=== PATIENT | female | born 1990 | race Caucasian/White ===

== ENCOUNTER 2016-11-27 00:23 | Inpatient (IN) | payer SELFPAY ==
--- NOTE | 2016-11-27 00:56 | ED.PDOC ---
History of Present Illness - General Chief Complaint: Abdominal Pain Stated Complaint: abd pain Time Seen by Provider: 11/27/16 00:34 Information Source: patient, RN notes reviewed Exam Limitations: no limitations - History of Present Illness Initial Comments: Ms. Tayler Long 26 y/o female stated she started experiencing dull right lower quadrant pain 2 hours ago which gradually got worse becoming constant. Abdominal Pain Onset Location: RLQ Pain Radiation: LLQ Quality: dull, steady Timing/Duration: 1-3 hours Associated Symptoms: denies symptoms Review of Systems - Review of Systems Constitutional: States: no symptoms reported EENTM: States: no symptoms reported Respiratory: States: no symptoms reported Cardiology: States: no symptoms reported Gastrointestinal/Abdominal: States: see HPI Genitourinary: States: no symptoms reported Musculoskeletal: States: no symptoms reported Skin: States: no symptoms reported Neurological: States: no symptoms reported Endocrine: States: no symptoms reported Hematologic/Lymphatic: States: no symptoms reported Past Medical History (General) - Patient Medical History Surgical History: no surgical history - Social History Hx Tobacco Use: No Hx Alcohol Use: No Hx Substance Use: No - Activities of Daily Living Patient Lives Alone: No - spouse - Female History Patient is a Female of Child Bearing Age (10 -59 yrs old): Yes Hx Last Menstrual Period: 03/02/16 Patient : No Family Medical History - Family History Mother Family History: Unknown Hx Family Diabetes: Yes - dad Physical Exam - Physical Exam General Appearance: Alert, No apparent distress Eyes, Ears, Nose, Throat Exam: PERRL/EOMI, normal ENT inspection, TMs normal, pharynx normal Neck: non-tender, full range of motion, supple, normal inspection Respiratory: chest non-tender, lungs clear, normal breath sounds, no respiratory distress Cardiovascular/Chest: normal peripheral pulses, regular rate, rhythm, no edema, no murmur Peripheral Pulses: No deficit Gastrointestinal/Abdominal: normal bowel sounds, soft, guarding, rebound - RLQ, tenderness Back Exam: normal inspection, no CVA tenderness, no vertebral tenderness Extremity: normal range of motion, non-tender Neurologic: no motor/sensory deficits, alert, normal mood/affect, oriented x 3 Skin Exam: normal color, warm/dry Lymphatic: no adenopathy Progress - Results/Orders Results/Orders: 11/27/16 01:11 Hold Metformin x 48Hrs [id number] Laboratory Results WBC 19.0 K/mm3 (4.8-10.8) H 11/27/16 00:45 RBC 5.45 M/mm3 (4.20-5.40) H 11/27/16 00:45 Hgb 15.6 gm/dL (12.0-16.0) 11/27/16 00:45 Hct 45.5 % (36.0-47.0) 11/27/16 00:45 MCV 83.4 fl (81.0-99.0) 11/27/16 00:45 MCH 28.6 pg (27.0-31.0) 11/27/16 00:45 MCHC 34.2 g/dL (33.0-37.0) 11/27/16 00:45 RDW 13.2 % (11.5-14.5) 11/27/16 00:45 Plt Count 399 K/mm3 (130-400) 11/27/16 00:45 MPV 7.2 fl (7.40-10.4) L 11/27/16 00:45 Absolute Neuts (auto) 13.10 K/uL (1.8-6.8) H 11/27/16 00:45 Absolute Lymphs (auto) 4.80 K/uL (1.0-3.4) H 11/27/16 00:45 Absolute Monos (auto) 0.80 K/uL (0.2-0.8) 11/27/16 00:45 Absolute Eos (auto) 0.20 K/uL (0.0-0.4) 11/27/16 00:45 Absolute Basos (auto) 0.20 K/uL (0.0-0.1) H 11/27/16 00:45 Neutrophils % 68.8 % (42.0-78.0) 11/27/16 00:45 Lymphocytes % 25.2 % (20.0-50.0) 11/27/16 00:45 Monocytes % 4.3 % (2.0-9.0) 11/27/16 00:45 Eosinophils % 0.8 % (1.0-5.0) L 11/27/16 00:45 Basophils % 0.9 % (0.0-2.0) 11/27/16 00:45 Sodium 137 mmol/L (135-145) 11/27/16 00:45 Potassium 3.6 mmol/L (3.6-5.0) 11/27/16 00:45 Chloride 102 mmol/L (101-111) 11/27/16 00:45 Carbon Dioxide 25 mmol/L (21-31) 11/27/16 00:45 Anion Gap 13.6 (12-18) 11/27/16 00:45 BUN 16 mg/dL (7-18) 11/27/16 00:45 Creatinine 0.87 mg/dL (0.6-1.3) 11/27/16 00:45 BUN/Creatinine Ratio 18.4 (10-20) 11/27/16 00:45 Random Glucose 102 mg/dL (70-105) 11/27/16 00:45 Serum Osmolality 275.2 mOsm/L (275-295) 11/27/16 00:45 Calcium 9.6 mg/dL (8.4-10.2) 11/27/16 00:45 Total Bilirubin 0.4 mg/dL (0.2-1.0) 11/27/16 00:45 AST 25 IU/L (10-42) 11/27/16 00:45 ALT 35 IU/L (10-60) 11/27/16 00:45 Alkaline Phosphatase 63 IU/L (42-121) 11/27/16 00:45 Serum Total Protein 8.7 gm/dL (6.4-8.2) H 11/27/16 00:45 Albumin 4.5 g/dl (3.2-5.5) 11/27/16 00:45 Globulin 4.2 gm/dL (2.3-3.5) H 11/27/16 00:45 Albumin/Globulin Ratio 1.1 (1.1-1.9) 11/27/16 00:45 Lipase 28 U/L (22-51) 11/27/16 00:45 Serum HCG, Qual Negative 11/27/16 00:45 Urine Color Yellow (Yellow) 11/27/16 01:45 Urine Appearance Clear (Clear) 11/27/16 01:45 Urine pH 6.0 (4.5-7.8) 11/27/16 01:45 Ur Specific [place] 1.010 (1.005-1.030) 11/27/16 01:45 Urine Protein Negative mg/dL 11/27/16 01:45 Urine Glucose (UA) Negative mg/dL (Negative) 11/27/16 01:45 Urine Ketones Negative mg/dL (NEGATIVE) 11/27/16 01:45 Urine Blood Negative (Negative) 11/27/16 01:45 Urine Nitrite Negative 11/27/16 01:45 Urine Bilirubin Negative (NEGATIVE) 11/27/16 01:45 Urine Urobilinogen 0.2 mg/dL (0.2-1.0) 11/27/16 01:45 Ur Leukocyte Esterase Negative (Negative) 11/27/16 01:45 Urine RBC 0 /hpf 11/27/16 01:45 Urine WBC 0 /hpf 11/27/16 01:45 Ur Epithelial Cells 0-1 /hpf 11/27/16 01:45 Urine Bacteria Rare 11/27/16 01:45 Vital Signs - 24 hr 11/27/16 00:50 Temperature 99.9 F H Pulse Rate [ 103 H monitor] Respiratory 20 Rate Blood Pressure 146/83 [Left Arm] O2 Sat by Pulse 97 Oximetry Departure - Departure Clinical Impression: Acute appendicitis Qualifiers: Acute appendicitis type: unspecified acute appendicitis type Qualifier Code: ( K35.80) Unspecified acute appendicitis Time of Disposition: 02:04 - D/W Dr. Palmer-Surgeon for admit Disposition: Admit Patient Departure Forms: Patient Portal Self Enrollment
[2016-11-27] MEDS ORDERED: LACTATED RINGERS 1,000 ML IVS ONE (00:57)
[2016-11-27] MEDS ORDERED: PROCHLORPERAZINE INJ 10 MG/2 ML VIAL IV ONE (00:58)
[2016-11-27] MEDS ORDERED: MORPHINE SULFATE INJ 10 MG/ML VIAL IV ONE (00:58)
--- NOTE | 2016-11-27 01:43 | CT ---
EXAM DESCRIPTION: Abdomen/Pelvis w/Contrast 11/27/2016 1:40 AM CDT CLINICAL HISTORY: 26 years, Female, RLQ ABD PAIN COMPARISON: [None] TECHNIQUE: Following the administration of intravenous and enteric contrast, volumetric CT acquisition was performed through the abdomen and pelvis. Images in the axial and coronal planes were presented for interpretation This exam was performed according to our departmental dose-optimization program, which includes automated exposure control, adjustment of the mA and/or kV according to patient size and/or use of iterative reconstruction technique. FINDINGS: The visualized portions of the lung bases are clear. The cardiomediastinal structures are within normal limits. Within the upper abdomen, the liver and spleen are normal in size and morphology. There is diffuse fatty infiltration of the liver. The gallbladder is normal in morphology. The intra/extrahepatic biliary tree is normal in appearance. The pancreas and adrenal glands are normal. The kidneys are normal in size bilaterally. The ureters are normal in course and caliber. The stomach and small intestines are within normal limits without evidence of bowel dilation or wall thickening. The appendix is dilated and partially fluid-filled measuring up to 10 mm in diameter on axial image 62 lateral to the right psoas muscle. There are moderate surrounding inflammatory changes. There is no evidence of perforation or abscess formation. The colon is stool filled and unremarkable. Within the pelvis, the bladder and rectum are normal. The uterus and ovaries are age-appropriate. There are no pathologically enlarged inguinal, retroperitoneal, portacaval, or mesenteric lymph nodes. The soft tissue structures of the abdominal wall are normal. The visualized osseous structures are within normal limits for the patient's age. The abdominal aorta and its primary branches are normal in course and caliber. Limited evaluation of the venous structures demonstrates no gross abnormalities. IMPRESSION: Acute uncomplicated appendicitis. Note: Results discussed with Dr. Jorge of the Emergency Department at 01:42 on November 27, 2016. Electronically signed by: Alanis Harmon MD 11/27/2016 1:42 AM CDT
[2016-11-27] MEDS ORDERED: HYDROmorphone HCL INJ 2 MG/ML VIAL IV ONE (01:59)
--- NOTE | 2016-11-27 03:03 | HP ---
CHIEF COMPLAINT: Abdominal pain. HISTORY OF PRESENT ILLNESS: The patient is a 26 year-old female who was in her normal state of health when she developed abdominal pain yesterday which moved to the right lower quadrant and has become persistent, dull and quite painful. She denies nausea or vomiting or fever. She states she has had previous episodes of like illness but not to this extent. She denies change in bowel habits, blood per rectum, melanotic stools. She denies weight loss or gain. She denies urinary tract symptoms. PAST MEDICAL HISTORY: 1. Oophorectomy. 2. Large benign ovarian cyst. CURRENT MEDICATIONS: She states no medications on a routine basis. ALLERGIES: NO KNOWN DRUG ALLERGIES. FAMILY HISTORY: Positive for diabetes but no malignancies. SOCIAL HISTORY: The patient is single but has lived with the same person for 4 years. She also lives with her mother. She smokes cigarettes a pack a day, but less than 10-pack years. She does not use alcohol routinely and denies substance abuse. LAST MENSTRUAL PERIOD: Unknown. REVIEW OF SYSTEMS: No history of chest pain, shortness of breath, otherwise the same as in the history of present illness. PHYSICAL EXAMINATION: VITAL SIGNS: She is currently afebrile and normotensive. GENERAL: The patient is awake, alert and cooperative and in mild distress. HEENT: Sclera nonicteric. Mucous membranes are moist. BACK: Without CVA tenderness. CHEST: Equal breath sounds bilaterally anteriorly. CARDIOVASCULAR: Regular rate and rhythm, somewhat tachycardic. ABDOMEN: Soft, bowel sounds are active. There is tenderness diffusely but worse in the right lower quadrant. EXTREMITIES: Without cyanosis, clubbing, or edema. PELVIC/RECTAL: Examinations deferred. LABORATORY: This morning at 0045 revealed a white count of 19,000, hemoglobin 15.6. She had 399,000 platelets and 68% neutrophils. Chemistries revealed a potassium of 3.6, creatinine 0.87. Liver functions within normal limits. Amylase and lipase within normal limits. hCG is negative. CT scan revealed inflammatory process around a dilated appendix with no free fluid, free air or discrete abscess cavity. ASSESSMENT: 1. Right lower quadrant abdominal pain. 2. Leukocytosis. 3. Abnormal CT scan consistent with appendicitis. PLAN: The risks, benefits, and alternatives including IV treatment for uncomplicated appendicitis were discussed with the patient and she agrees to the plan of laparotomy appendectomy and indicated procedures. This morning she has received IV Mefoxin and Flagyl and this will be continued in the perioperative period. #[id number] [facility]
[2016-11-27] MEDS ORDERED: SODIUM CHLORIDE 0.9% 1000ML 1,000 ML IVS PRN ×2 (03:22→08:09)
[2016-11-27] MEDS ORDERED: cefOXitin SODIUM 2 GM in SODIUM CHL 0.9% 50ML MIN-BAG+ 50 ML IVPB ONE (03:23)
[2016-11-27] MEDS ORDERED: metroNIDAZOLE IV PREMIX 500MG 500 MG in PREMIX BAG 1 BAG IVPB ONE (03:24)
[2016-11-27] MEDS ORDERED: SODIUM CHL 0.9% 50ML MIN-BAG+ 50 ML IVPB ONE ×3 (03:35→19:14)
[2016-11-27] MEDS ORDERED: cefOXitin SODIUM 2 GM INJ IVPB ONE ×4 (03:35→19:14)
[2016-11-27] MEDS ORDERED: metroNIDAZOLE IV PREMIX 500MG 100 ML IVPB ONE ×4 (03:46→19:14)
[2016-11-27] MEDS ORDERED: BUPIVACAINE 0.25% W/EPI 50 ML VIAL INJ ONE (07:48)
[2016-11-27] MEDS ORDERED: fentaNYL CITRATE INJ 50 MCG/ML AMP IV ONE (08:11)
[2016-11-27] MEDS ORDERED: IV SET AND CAP CHANGE INJ INJ SCH (08:30)
[2016-11-27] MEDS ORDERED: MIDAZOLAM INJ 5 MG/5 ML VIAL ONE (08:50)
[2016-11-27] MEDS ORDERED: ONDANSETRON INJ 4 MG/2 ML VIAL IV PRN (10:08)
[2016-11-27] MEDS: LACTATED RINGERS 1,000 ML IVS PRN ×3 (10:18→18:15)
[2016-11-27] MEDS: MORPHINE SULFATE INJ 10 MG/ML VIAL ONE ×3 (10:24→10:34)
[2016-11-27] MEDS ORDERED: SODIUM CHL 0.9% 100ML MINI-BAG 100 ML IVPB ONE (10:25)
[2016-11-27] MEDS: cefOXitin SODIUM 2 GM in SODIUM CHL 0.9% 50ML MIN-BAG+ 50 ML IVPB SCH ×2 (10:30→17:30)
[2016-11-27] MEDS ORDERED: METOCLOPRAMIDE HCL INJ 10 MG/2 ML VIAL ONE (11:00)
[2016-11-27] MEDS ORDERED: MAGNESIUM HYDROXIDE 30 ML UD ONE (11:17)
[2016-11-27] MEDS: metroNIDAZOLE IV PREMIX 500MG 500 MG in PREMIX BAG 1 BAG IVPB SCH ×2 (11:21→18:14)
--- NOTE | 2016-11-27 11:28 | OP ---
DATE OF PROCEDURE: 11/27/16 PREOPERATIVE DIAGNOSIS: 1. Right lower quadrant abdominal pain. 2. Leukocytosis of 19,000. 3. Abnormal CT scan consistent with appendicitis. POSTOPERATIVE DIAGNOSIS: 1. Right lower quadrant abdominal pain. 2. Leukocytosis of 19,000. 3. Abnormal CT scan consistent with appendicitis. 4. Acute appendicitis. 5. Large left ovarian cyst benign appearing. PROCEDURE: 1. Laparoscopy, appendectomy and drainage of ovarian cyst. SURGEON: Ari Palmer M.D. SCHOOL BUSINESS MANAGER: None. ANESTHESIA: Local infiltration of 0.25% Marcaine with epinephrine and general endotracheal anesthesia. INDICATION FOR SURGERY: The patient is a 26 year-old female with the acute onset of abdominal pain in the right lower quadrant yesterday. She was admitted and CT scan was consistent with acute appendicitis. She was noted to have a white count of 19,000. She was admitted, made NPO, started on IV antibiotics of Mefoxin and Flagyl, and given a small amount of analgesia. She was rehydrated intravenously and this morning after the risks, benefits, and alternatives to surgery were discussed and accepted, she was brought to the Surgical Suite. FINDINGS AT TIME OF PROCEDURE: The patient had a large, very benign-appearing left ovarian cyst completely filling the pelvis making the procedure essentially impossible prior to its drainage. The drainage was clear and was sent for cytology. The appendix was inflamed and somewhat retrocecal. There was no obvious abscess cavity, fluid collection or perforation identified. Also noted during the procedure was a small serosal tear in the sigmoid colon. It was irrigated and felt to be serosal only and it was not treated. DESCRIPTION OF PROCEDURE: After adequate general endotracheal anesthesia was obtained, the Williamson catheter was placed. The patient was prepped and draped in the usual sterile manner. A surgical time out was taken. The infraumbilical area was infiltrated with 0.25% Marcaine with epinephrine. A curvilinear incision was fashioned and carried down through the subcutaneous tissue to the midline fascia. Traction sutures were placed on either side of the midline. A small incision was made in the midline fascia. The peritoneum was opened bluntly. Mery trocar was introduced under direct vision into the abdominal cavity and fixed in place with a 20 mL balloon. CO2 was then insufflated until a pressure of 12 mmHg was reached and the abdomen was tympanitic in all 4 quadrants. When this was done, the laparoscope was introduced with the previously noted findings, basically a cyst that was bluish tone, very smooth but completely filled the pelvis. At this point, suprapubic port was placed well up approximately 2.5 inches above her Pfannenstiel incision. When it was placed, it was held in place with the balloon and then a blunt grasper was used to make a hole in the cyst, 20 mL approximately of the fluid was sent for cytology. The suction catheter was introduced into the cyst and it was completely deflated. The remainder of the fluid was removed. At this point, the appendix was identified in the right lower quadrant. The left lower quadrant port was placed under direction vision and then using some blunt dissection the appendix was elevated. The base of the appendix was identified. The mesoappendix at the base was divided using blunt dissection and the base of the appendix was divided using the Endo-JONATHON with a vascular load. The mesoappendix which was white, firm and indurated was transected with multiple firings of the Endo-JONATHON. The appendix was placed in an EndoCatch bag and removed from the left lower quadrant port site under direct vision. It was also noted this was all done with the patient in reverse Trendelenburg position and turned to the left side. When this was done, there was a small amount of oozing from this area and it was irrigated copiously with saline. There was no pulsatile bleeding. The pelvis was irrigated with saline. Good hemostasis was noted there. There was no significant bloody fluid collection identified. Due to the inflammatory process in the right lower quadrant and the oozing, a 15 [place] round J-P drain was placed in the area of the base of the appendix and brought out through the suprapubic port site. It was sutured in placed with a single #3-0 nylon ligature. When this was done, the left lower quadrant port was removed under direct vision and it was closed with the EndoClose device placing 2 simple sutures of 0 Vicryl. When these were tightened and tied, hemostasis was noted to be adequate. At this point, the CO2, the laparoscope and the infraumbilical port were removed. The infraumbilical port site fascia was approximated with a single [id number] suture of 0 Vicryl. Subcutaneous tissue was irrigated with saline. Skin edges were loosely approximated with a skin stapler. Sterile dressings were applied. The patient was awakened and taken to the Recovery Room in good and stable condition after the Williamson catheter was removed. Estimated blood loss was approximately 100 mL. A large amount of cyst fluid was removed and the patient was irrigated with approximately 800 mL. All sponge, needle and instrument counts were correct. #[id number] [facility]
[2016-11-27] MEDS: HYDROmorphone HCL INJ 2 MG/ML VIAL IV PRN ×4 (11:32→21:19)
[2016-11-27] MEDS ORDERED: NEOSTIGMINE METHYLSULFATE 1 MG/ML ML IV ONE (12:00)
[2016-11-27] MEDS ORDERED: ATROPINE SULFATE 0.4 MG/ML 1ML VIAL IV ONE (12:00)
[2016-11-27] MEDS ORDERED: PROPOFOL 200 MG/20 ML VIAL IV ONE (12:00)
[2016-11-27] MEDS: HYDROcodone 5MG/APAP 325MG 1 EA TAB PO PRN (15:58)
[2016-11-27] MEDS ORDERED: MAGNESIUM HYDROXIDE 30 ML UD PO ONE (18:00)
[2016-11-28] MEDS: cefOXitin SODIUM 2 GM in SODIUM CHL 0.9% 50ML MIN-BAG+ 50 ML IVPB SCH ×3 (01:33→18:10)
[2016-11-28] MEDS: HYDROmorphone HCL INJ 2 MG/ML VIAL IV PRN ×3 (01:40→20:11)
[2016-11-28] MEDS: metroNIDAZOLE IV PREMIX 500MG 500 MG in PREMIX BAG 1 BAG IVPB SCH ×3 (02:35→19:47)
[2016-11-28] MEDS: LACTATED RINGERS 1,000 ML IVS PRN ×2 (06:19→20:10)
[2016-11-28] MEDS: SODIUM CHLORIDE 0.9% (FLUSH) 10 ML SYG IV PRN ×4 (07:00→20:11)
[2016-11-28] MEDS ORDERED: cefOXitin SODIUM 2 GM INJ IVPB ONE ×2 (07:29→18:08)
[2016-11-28] MEDS ORDERED: metroNIDAZOLE IV PREMIX 500MG 100 ML IVPB ONE ×2 (07:29→19:40)
[2016-11-28] MEDS ORDERED: SODIUM CHL 0.9% 50ML MIN-BAG+ 50 ML IVPB ONE ×2 (07:29→18:07)
[2016-11-28] MEDS ORDERED: METOCLOPRAMIDE HCL INJ 10 MG/2 ML VIAL IV ONE (09:05)
[2016-11-28] MEDS: HYDROcodone 5MG/APAP 325MG 1 EA TAB PO PRN ×2 (13:25→17:45)
[2016-11-28] MEDS ORDERED: MAGNESIUM HYDROXIDE 30 ML UD PO ONE (14:00)
[2016-11-29] MEDS ORDERED: cefOXitin SODIUM 2 GM INJ IVPB ONE ×4 (00:43→10:11)
[2016-11-29] MEDS ORDERED: SODIUM CHL 0.9% 50ML MIN-BAG+ 50 ML IVPB ONE ×3 (00:43→10:11)
[2016-11-29] MEDS ORDERED: PROCHLORPERAZINE INJ 10 MG/2 ML VIAL IV ONE (01:01)
[2016-11-29] MEDS ORDERED: SODIUM CHLORIDE 0.9% 50ML 50 ML ONE (01:04)
[2016-11-29] MEDS ORDERED: metroNIDAZOLE IV PREMIX 500MG 100 ML IVPB ONE ×3 (01:35→11:13)
[2016-11-29] MEDS: cefOXitin SODIUM 2 GM in SODIUM CHL 0.9% 50ML MIN-BAG+ 50 ML IVPB SCH ×2 (01:36→10:05)
[2016-11-29] MEDS: metroNIDAZOLE IV PREMIX 500MG 500 MG in PREMIX BAG 1 BAG IVPB SCH ×2 (02:35→11:13)
[2016-11-29] MEDS: SODIUM CHLORIDE 0.9% (FLUSH) 10 ML SYG IV PRN (02:35)
[2016-11-29] MEDS: HYDROcodone 5MG/APAP 325MG 1 EA TAB PO PRN ×2 (05:43→11:17)
[2016-11-29 15:08] VITALS: BP 128/82; TEMP 98.3; O2SAT 99
--- NOTE | 2016-11-29 17:58 | DS ---
FINAL DIAGNOSIS: 1. Acute appendicitis pending pathology report. 2. Benign-appearing left ovarian cyst. SURGICAL PROCEDURE: 1. Laparoscopy. 2. Appendectomy. 3. Drainage of ovarian cyst with cytology. HISTORY OF PRESENT ILLNESS: The patient is a 26 year-old female who was in her normal state of health when she developed abdominal pain yesterday which moved to the right lower quadrant and has become persistent, dull and quite painful. She denies nausea or vomiting or fever. She states she has had previous episodes of like illness but not to this extent. She denies change in bowel habits, blood per rectum, melanotic stools. She denies weight loss or gain. She denies urinary tract symptoms. LABORATORY: On the date of discharge, the patient's white blood cell count was 10.9 with 66% neutrophils, hemoglobin 13.4, platelet count 324,000. Pathology is pending. Her postoperative potassium was 4.2, creatinine 0.91. HOSPITAL COURSE: The patient was admitted from the Emergency Room early in the morning hours of 11/27/16. She was given IV Mefoxin and Flagyl. sonogram technician on the , she underwent a laparoscopic appendectomy and drainage of the left ovarian cyst. She tolerated the procedure well. On the first postoperative morning, she was afebrile, tolerating clear liquids. She had nausea which has resolved so she was left on a clear liquid diet. She had no flatus or bowel movement. Her white count was down from 19,000 to 10,000. Hemoglobin was stable along with her electrolytes. She was continued on IV antibiotics. She was given oral pain medication ordered as taken when her diet was well tolerated. She was given a dose of Milk of Magnesia. On the second postoperative day, she had had hiccups overnight but these resolved. She had had a bowel movement and flatus. She was tolerating clear liquids well. She was advanced to a regular diet. In the early afternoon after tolerating a regular diet, she was discharged home. Condition on discharge was improved. Prognosis was good pending pathology report and the cytology report. PLAN: She was discharged on a regular diet. She was told to do no heavy lifting or exercise. No tub baths but may shower. She is not to put anything on her incisions other than band-aids. She was discharged with prescriptions for Mills 5 mg 1 or 2 every 4 hours p.r.n. pain, Ceftin 250 every 12 hours and Flagyl 250 every 8 hours. She is discharged with instructions to followup in my office in 8 days. She is to call if she develops nausea or vomiting, fever or chills, increasing abdominal pain or has other questions or problems. #[id number] [facility]
== END 2016-11-29 15:20 | disposition home or self-care (01) | DRG 343 ==
LOC: ER 00:23 → OBSVTOIN 03:02 → MS 03:02
PROVIDERS: ADMIT Surgery; ATTEND Surgery
PROC: 0DTJ4ZZ Resection of Appendix, Percutaneous Endoscopic Approach (ICD-10-PCS; 2016-11-27)
PROC: 0U914ZZ Drainage of Left Ovary, Percutaneous Endoscopic Approach (ICD-10-PCS; 2016-11-27)
PROC: BW21YZZ Computerized Tomography (CT Scan) of Abdomen and Pelvis using Other Contrast (ICD-10-PCS; principal; 2016-11-27 08:29)
DX: K35.80 Unspecified acute appendicitis (principal); N83.202 Unspecified ovarian cyst, left side; F17.210 Nicotine dependence, cigarettes, uncomplicated; Z90.721 Acquired absence of ovaries, unilateral

== ENCOUNTER 2017-09-04 10:06 | Emergency (ER) | payer SELFPAY ==
--- NOTE | 2017-09-04 10:35 | ED.PDOC ---
History of Present Illness - General Chief Complaint: Eye Problems Time Seen by Provider: 09/04/17 10:32 Source: patient, family Additional Information: 26 YEAR OLD PRESENTS TO THE ED WITH COMPLAINTS OF RIGHT EYE REDNESS IRRITATION BLURRING OF VISION ONSET 10 PM LAST NIGHT WAS WORKING WITH WOOD THINKS A PIECE OF WOOD MIGHT HAVE GOTTEN IN THE RIGHT EYE SHE HAS FB SENSATION AND TEARING AND REDDNESS - History of Present Illness Timing/Duration: constant Severity: moderate Improving Factors: nothing Worsening Factors: nothing Associated Symptoms: denies symptoms Allergies/Adverse Reactions: Allergies NO KNOWN ALLERGY Allergy (Verified 11/27/16 00:49) Review of Systems - Review of Systems Constitutional: States: no symptoms reported EENTM: States: see HPI Respiratory: States: no symptoms reported Cardiology: States: no symptoms reported Gastrointestinal/Abdominal: States: no symptoms reported Genitourinary: States: no symptoms reported Musculoskeletal: States: no symptoms reported Skin: States: no symptoms reported Neurological: States: no symptoms reported Endocrine: States: no symptoms reported Hematologic/Lymphatic: States: no symptoms reported Past Medical History (General) - Patient Medical History Hx Seizures: No Hx Stroke: No Hx Asthma: No Hx of COPD: No Hx Congestive Heart Failure: No Hx Pacemaker: No Hx Hypertension: Yes - when younger Hx Diabetes: No Hx MRSA: No - Vaccination History Hx Tetanus, Diphtheria Vaccination: No Hx Influenza Vaccination: No Hx Pneumococcal Vaccination: No - Social History Hx Tobacco Use: No Hx Alcohol Use: No Hx Substance Use: No Hx Substance Use Treatment: No Hx Depression: No Hx Physical Abuse: No Hx Emotional Abuse: No - Female History Hx Last Menstrual Period: 03/02/16 Patient : No Family Medical History - Family History Mother Family History: Unknown Hx Family Diabetes: Yes - dad Physical Exam - Physical Exam General Appearance: Alert, Well Developed, Well Groomed Eye Exam: bilateral normal Ears, Nose, Throat: hearing grossly normal Neck: non-tender, full range of motion, supple Respiratory: chest non-tender, lungs clear, normal breath sounds, no respiratory distress Cardiovascular/Chest: normal peripheral pulses, regular rate, rhythm, no edema, no gallop, no JVD, no murmur Gastrointestinal/Abdominal: normal bowel sounds, non tender, soft, no organomegaly, no pulsatile mass Extremity: normal range of motion, non-tender, normal inspection Neurologic: export freight specialist II-XII nml as tested, no motor/sensory deficits, alert Progress - Progress Progress: 09/04/17 11:26 RIGHT EYE EXAM CORNEA NORMAL CONJUNCTIVA INJECTED EYE WAS EXAMINED WITH MARIA LAMP AFTER INSTILLING TETRACAINE AND FLUROCEIN STAIN NO STAIN UPTAKE IN THE CORNEA EYE WAS EVERTED AND NO FB SEEN UNDER THE UPPER LID BUT THE CONJUNCTIVA APPEARS RED THE EYE WAS THEN IRRIGATED WITH MORGANS LENS USING 1 L OF SALINE 'PT FELT LOT BETTER LESS IRRITATION GENTAMYCIN OPTHALMIC DROPS APPLIED SHE WAS DISCHARGED HOME WITH ADVISE TO FOLLOW UP WITH PCP AND OPHTHALMOLOGY Departure - Departure Clinical Impression: Eye inflammation ICD-10 Supporting Text: CHEMICAL CONJUNCTIVITIS Time of Disposition: 11:32 Disposition: Discharge to Home or Self Care Condition: Good Departure Forms: ED Discharge - Pt. Copy, Patient Portal Self Enrollment Instructions: DI for Eye Pain Activity: increase activity as tolerated Referrals: KRISSY CRAIG [Referring] - 1-2 Weeks
[2017-09-04] MEDS ORDERED: SODIUM CHLORIDE 0.9% 1000ML 1,000 ML ONE (10:57)
[2017-09-04 11:46] VITALS: BP 131/95; O2SAT 99
[2017-09-04] MEDS ORDERED: GENTAMICIN 0.3% OPHTH SOL 1 DROP OPHTH ONE (12:00)
[2017-09-04] MEDS ORDERED: TETRACAINE HCL 0.5% OPHTH SOL 1 DROP OPHTH ONE (12:00)
[2017-09-04 19:44] VITALS: TEMP 98.6
== END 2017-09-04 11:45 | disposition home or self-care (01) ==
LOC: ER 10:06
DX: H57.8 Other specified disorders of eye and adnexa (principal)

== ENCOUNTER → 2017-10-24 | Outpatient (CLI) | payer SELFPAY ==
--- NOTE | 2017-10-24 20:20 | US ---
EXAM DESCRIPTION: Breast,Right: Ultrasound CLINICAL HISTORY: 26 yearsFemaleBREAST CYST COMPARISON: None. TECHNIQUE: Transcutaneous scanning of the right breast utilizing two-dimensional and Doppler modes. Scanning performed by the strawhat blocking operator and Dr. Metz. FINDINGS: The breast was scanned from the 400 clock position to the 1000 clock position. No discrete solid mass. No distinct cyst. No parenchymal edema. No large calcifications. No skin or nipple changes. IMPRESSION: BI-RADS Category 2: Benign findings. Consider beginning routine digital bilateral mammographic screening at age 40. The FINDINGS and the FOLLOW-UP plan were reviewed in person with the patient after the examination. Written communication explaining the IMPRESSION and FOLLOW-UP will be mailed to the patient and referring care provider. According to the [employer], yearly mammograms are recommended starting at age 40 and continuing as long as a woman is in good health. Any breast change noted on a breast self-exam should be reported promptly to the patient's healthcare provider. Breast MRI is recommended for women with an approximately 20-25% or greater lifetime risk of breast cancer, including women with a strong family history of breast or ovarian cancer and women who have been treated for Hodgkin's disease. A negative breast ultrasound report should not delay tissue diagnosis in patients with significant clinical history or physical findings. Electronically signed by: Girish Metz MD 10/24/2017 8:19 PM CDT
== END ==
LOC: US 09:46
PROVIDERS: ATTEND Obstetrics & Gynecology
DX: N60.01 Solitary cyst of right breast (principal)